=== PATIENT | female | born 1950 | race Caucasian/White ===

== ENCOUNTER 2019-09-11 21:06 | Emergency (ER) | payer MEDICARE, MEDICAID ==
[2019-09-11 21:46] VITALS: BP 177/88; PULSE 87
--- NOTE | 2019-09-11 21:54 | EDM.PDOC ---
ED HPI GENERAL MEDICAL PROBLEM - General Chief Complaint: General Stated Complaint: CHOKING Time Seen by Provider: 09/11/19 21:46 Source of Information: Reports: Patient, EMS, Family, RN Notes Reviewed History Limitations: Reports: No Limitations - History of Present Illness INITIAL COMMENTS - FREE TEXT/NARRATIVE: 68-year-old female presents emergency department today with complaint of choking sensation, she is a resident of assisted living facility was eating carrots had difficulty choking staff did assist she then vomited the carrot up but however still had the sensation that something was caught in her throat. However by the time she arrived to the emergency department she states she feels back to normal she is given a glass of ice water and has no difficulty swallowing Throat Pain Score (Numeric/FACES): 2 - Related Data Allergies Allergy/AdvReac Type Severity Reaction Status Date / Time No Known Allergies Allergy Verified 09/11/19 21:13 Home Meds: Home Meds Ezetimibe [Zetia] 10 mg PO BEDTIME 05/16/13 [History] Insulin Aspart [Novolog] 12 unit SQ TIDMEALS 05/16/13 [History] Levothyroxine 88 mcg PO DAILY 05/16/13 [History] atorvaSTATin [Lipitor] 10 mg PO BEDTIME 05/16/13 [History] metFORMIN [Glucophage] 850 mg PO BID 05/16/13 [History] Acetaminophen [Tylenol] 1 - 2 tab PO Q4H PRN 07/07/14 [History] Calcium Carb/Vitamin D3/Vit K1 [Calcium + D Soft Chewable Tab] 1 each PO DAILY 07/07/14 [History] Chlorhexidine Gluconate [Peridex] 15 ml PO BID 07/07/14 [History] Dextromethorphan/guaiFENesin [Robitussin DM] 1 - 2 ml PO Q4H PRN 07/07/14 [ History] Losartan [Cozaar] 25 mg PO DAILY 07/07/14 [History] Clotrimazole [Clotrimazole 1%] 1 applic TOP ASDIRECTED 02/05/16 [History] Triamcinolone Acetonide [Kenalog 0.1% Crm] 1 applic TOP ASDIRECTED 02/05/16 [ History] Alendronate [Fosamax] 70 mg PO SUMOTUWETHFR 02/06/16 [History] Canagliflozin [Invokana] 300 mg PO DAILY 02/06/16 [History] Insulin Glargine,Hum.Rec.Anlog [[place]] 75 units SQ DAILY 02/06/16 [ History] Past Medical History HEENT History: Reports: Impaired Vision Cardiovascular History: Reports: High Cholesterol, Hypertension Gastrointestinal History: Reports: Cholelithiasis Genitourinary History: Reports: UTI, 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: Dysfunctional 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 Bleeding Psychiatric History: Reports: Developmental Delay Endocrine/Metabolic History: Reports: Diabetes, Type II, Hypothyroidism, IDDM, Obesity/BMI 30+, Osteoporosis - Past Surgical History GI Surgical History: Reports: Colonoscopy Dermatological Surgical History: Reports: None Social & Family History - Tobacco Use Smoking Status *Q: Never Smoker Second Hand Smoke Exposure: No - Caffeine Use Caffeine Use: Reports: None - Recreational Drug Use Recreational Drug Use: No ED ROS GENERAL - Review of Systems Review Of Systems: See Below HEENT: Reports: Throat Pain, Throat Swelling ED EXAM, GENERAL - Physical Exam Exam: See Below Exam Limited By: No Limitations General Appearance: Alert, WD/WN, No Apparent Distress Throat/Mouth: Normal Inspection, Normal Lips, Normal Teeth, Normal Gums, Normal Oropharynx, Normal Voice, No Airway Compromise Neck: Normal Inspection, Supple, Non-Tender, Full Range of Motion Respiratory/Chest: No Respiratory Distress, Lungs Clear, Normal Breath Sounds, No Accessory Muscle Use, Chest Non-Tender Cardiovascular: Regular Rate, Rhythm, No Murmur Course - Vital Signs Last Recorded V/S: Last Vital Signs Temp 98.4 F 09/11/19 21:17 Pulse 87 09/11/19 21:45 Resp 16 09/11/19 21:45 BP 177/88 H 09/11/19 21:45 Pulse Ox 97 09/11/19 21:45 Departure - Departure Time of Disposition: 21:53 Disposition: Home, Self-Care 01 Condition: Fair Clinical Impression: Choking episode - Discharge Information Referrals: PCP,None [Primary Care Provider] - Additional Instructions: Follow-up with primary care as needed, call or return to the emergency department as needed Sepsis Event Note - Evaluation Sepsis Screening Result: No Definite Risk - Focused Exam Vital Signs: Vital Signs Temp Pulse Resp BP Pulse Ox 09/11/19 21:45 87 16 177/88 H 97 09/11/19 21:30 113 H 16 208/98 H 99 09/11/19 21:17 98.4 F 107 H 16 199/97 H 99 09/11/19 21:14 98.4 F 107 H 16 19997 H 99 Date Exam was Performed: 09/11/19 Time Exam was Performed: 21:51 - Assessment/Plan Plan: Assessment Acuity = acute Site and laterality = choking sensation now resolved Etiology = secondary to food bolus Manifestations = none Location of injury = Home Lab values = none Plan She tolerated small sips of water without difficulty, states she feels back to her normal self plan is discharged back to assisted living center follow-up primary care as needed This note was dictated using [employer] voice recognition software please call with any questions on syntax or grammar.
== END 2019-09-11 22:07 | disposition home or self-care (01) ==
LOC: JP.ED 21:06
DX: R09.89 Other specified symptoms and signs involving the circulatory and respiratory systems (principal); I10 Essential (primary) hypertension; E11.9 Type 2 diabetes mellitus without complications; E78.00 Pure hypercholesterolemia, unspecified; E03.9 Hypothyroidism, unspecified; E66.9 Obesity, unspecified; Z68.27 Body mass index [BMI] 27.0-27.9, adult; Z79.899 Other long term (current) drug therapy; Z79.4 Long term (current) use of insulin
CPT/HCPCS: 99282; 99283

== ENCOUNTER 2021-03-23 12:43 | Emergency (ER) | payer MEDICARE, MEDICAID ==
[2021-03-23] MEDS ORDERED: 50% Dextrose in Water 50 ML Syringe IVPUSH ONE ×2 (12:46→12:53)
[2021-03-23] MEDS ORDERED: Sodium Chloride 0.9% 10 ML Syringe FLUSH PRN (12:46)
--- NOTE | 2021-03-23 13:01 | EDM.PDOC ---
ED HPI GENERAL MEDICAL PROBLEM - General Chief Complaint: Gastrointestinal Problem Stated Complaint: MED[facility] Time Seen by Provider: 03/23/21 12:50 Source of Information: Reports: EMS, Old Records History Limitations: Reports: Other (patient with mental retardation) - History of Present Illness INITIAL COMMENTS - FREE TEXT/NARRATIVE: 70 yo female from a local [facility] was sent via EMS for presumed choking. Had received her insulin about 40 min before eating and when she tried to swalllow her lunch began choking and was not able to keep anything down. EMS upon arrival checked a blood sugar twice and got 38 and 39 on these checks. They then gave oral Glutose and transported. There was no diaphoresis. Onset: Today, Sudden Onset Date: 03/23/21 Duration: Minutes:, Improving Location: Reports: Other (unsure) Quality: Reports: Other (pain not reported) Severity: Moderate Improves with: Reports: Other (? oral glucose) Worsens with: Reports: Eating (? attempting to swallow) Context: Reports: Other (See HPI) Associated Symptoms: Reports: No Other Symptoms Treatments FLEECER: Reports: Other (see below) (oral "Glu-tose") - Related Data Allergies Allergy/AdvReac Type Severity Reaction Status Date / Time No Known Allergies Allergy Verified 03/23/21 13:24 Home Meds: Home Meds Ezetimibe [Zetia] 10 mg PO BEDTIME 05/16/13 [History] Insulin Aspart [Novolog] 12 unit SQ TIDMEALS 05/16/13 [History] Levothyroxine 88 mcg PO DAILY 05/16/13 [History] atorvaSTATin [Lipitor] 10 mg PO BEDTIME 05/16/13 [History] metFORMIN [Glucophage] 850 mg PO BID 05/16/13 [History] Acetaminophen [Tylenol] 1 - 2 tab PO Q4H PRN 07/07/14 [History] Calcium Carb/Vitamin D3/Vit K1 [Calcium + D Soft Chewable Tab] 1 each PO DAILY 07/07/14 [History] Chlorhexidine Gluconate [Peridex] 15 ml PO BID 07/07/14 [History] Dextromethorphan/guaiFENesin [Robitussin DM] 1 - 2 ml PO Q4H PRN 07/07/14 [History] Losartan [Cozaar] 25 mg PO DAILY 07/07/14 [History] Clotrimazole [Clotrimazole 1%] 1 applic TOP ASDIRECTED 02/05/16 [History] Triamcinolone Acetonide [Kenalog 0.1% Crm] 1 applic TOP ASDIRECTED 02/05/16 [History] Alendronate [Fosamax] 70 mg PO SUMOTUWETHFR 02/06/16 [History] Canagliflozin [Invokana] 300 mg PO DAILY 02/06/16 [History] Insulin Glargine,Hum.Rec.Anlog [Toujeo Solostar] 75 units SQ DAILY 02/06/16 [History] Past Medical History HEENT History: Reports: Impaired Vision Cardiovascular History: Reports: High Cholesterol, Hypertension Gastrointestinal History: Reports: Cholelithiasis Genitourinary History: Reports: UTI, 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: Dysfunctional 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 Bleeding Psychiatric History: Reports: Developmental Delay Endocrine/Metabolic History: Reports: Diabetes, Type II, Hypothyroidism, IDDM, Obesity/BMI 30+, Osteoporosis - Past Surgical History GI Surgical History: Reports: Colonoscopy Dermatological Surgical History: Reports: None Social & Family History - Caffeine Use Caffeine Use: Reports: None ED ROS GENERAL - Review of Systems Review Of Systems: Unable To Obtain Reason Not Obtained: mental retardation Constitutional: Reports: No Symptoms GI/Abdominal: Reports: Other (choking) ED EXAM, GI/ABD - Physical Exam Exam: See Below Exam Limited By: No Limitations General Appearance: Alert, WD/WN, No Apparent Distress Eyes: Bilateral: Normal Appearance Ears: Normal External Exam, Normal Canal, Hearing Grossly Normal Nose: Normal Inspection, No Blood Throat/Mouth: Normal Inspection, Normal Lips, Normal Oropharynx, Normal Voice, No Airway Compromise Head: Atraumatic, Normocephalic Neck: Normal Inspection Respiratory/Chest: No Respiratory Distress, Lungs Clear, Normal Breath Sounds, No Accessory Muscle Use Cardiovascular: Regular Rate, Rhythm, No Edema GI/Abdominal Exam: Soft, Non-Tender Extremities: Normal Inspection Neurological: Alert, Oriented, CN II-XII Intact, Normal Cognition, No Motor/Sensory Deficits Psychiatric: Normal Affect, Normal Mood Skin Exam: Warm, Dry, Intact, Normal Color, No Rash Course - Vital Signs Last Recorded V/S: Last Vital Signs Temp 36.0 C L 03/23/21 13:23 Pulse 112 H 03/23/21 13:23 Resp 18 03/23/21 13:23 BP 179/104 H 03/23/21 13:23 Pulse Ox 100 03/23/21 13:23 - Orders/Labs/Meds Orders: Active Orders 24 hr Category Date Time Status Sodium Chloride 0.9% [Saline Flush] Med 03/23/21 12:46 Active 10 ml FLUSH ASDIRECTED PRN Saline Lock Insert [OM.PC] Routine Oth 03/23/21 12:46 Ordered Medication Orders Sodium Chloride (Sodium Chloride 0.9% 10 Ml Syringe) 10 ml FLUSH ASDIRECTED PRN PRN Reason: Keep Vein Open Last Admin: 03/23/21 13:02 Dose: 10 ml Documented by: LOULOU Labs: Laboratory Tests 03/23/21 Range/Units 12:52 POC Glucose 49 L* (74-106) mg/dL Meds: Medications Generic Name Dose Route Start Last Admin Trade Name Freq PRN Reason Stop Dose Admin Sodium Chloride 10 ml 03/23/21 12:46 03/23/21 13:02 Sodium Chloride 0.9% 10 Ml Syringe FLUSH 10 ml ASDIRECTED PRN Administration Keep Vein Open Discontinued Medications Generic Name Dose Route Start Last Admin Trade Name Freq PRN Reason Stop Dose Admin Dextrose/Water 50 ml 03/23/21 12:46 50% Dextrose In Water 50 Ml Syringe IVPUSH 03/23/21 12:47 ONETIME ONE Dextrose/Water 25 ml 03/23/21 12:53 03/23/21 13:00 50% Dextrose In Water 50 Ml Syringe IVPUSH 03/23/21 12:54 25 ml ONETIME ONE Administration - Re-Assessments/Exams Free Text/Narrative Re-Assessment/Exam: 03/23/21 13:04 Fingerstick glucose in the 40's. Gave 1/2 amp of D50W IV and fed her lunch. Free Text/Narrative Re-Assessment/Exam: 03/23/21 13:47 once her blood sugar was corrected she ate fine lunch just fine. Departure - Departure Time of Disposition: 13:47 Disposition: Home, Self-Care 01 Condition: Good Clinical Impression: Hypoglycemia - Discharge Information *PRESCRIPTION DRUG MONITORING PROGRAM REVIEWED*: Not Applicable *COPY OF PRESCRIPTION DRUG MONITORING REPORT IN PATIENT EAN: Not Applicable Instructions: Hypoglycemia, [id number] Referrals: PCP,None [Primary Care Provider] - Forms: ED Department Discharge Additional Instructions: Have staff shorten the time before eating that her insulin is given by about 15- 20 minutes. Recheck as needed. Sepsis Event Note (ED) - Focused Exam Vital Signs: Vital Signs Temp Pulse Resp BP Pulse Ox 03/23/21 13:23 36.0 C L 112 H 18 179/104 H 100 03/23/21 13:04 112 H 179/104 H 100 03/23/21 12:57 36.0 C L 106 H 18 208/91 H 97 - My Orders Last 24 Hours: My Active Orders 03/23/21 12:46 Sodium Chloride 0.9% [Saline Flush] 10 ml FLUSH ASDIRECTED PRN Saline Lock Insert [OM.PC] Routine - Assessment/Plan Last 24 Hours: My Active Orders 03/23/21 12:46 Sodium Chloride 0.9% [Saline Flush] 10 ml FLUSH ASDIRECTED PRN Saline Lock Insert [OM.PC] Routine
[2021-03-23 13:09] VITALS: BP 179/104; PULSE 112
== END 2021-03-23 14:18 | disposition home or self-care (01) ==
LOC: JP.ED 12:43
DX: E11.649 Type 2 diabetes mellitus with hypoglycemia without coma (principal); E78.00 Pure hypercholesterolemia, unspecified; I10 Essential (primary) hypertension; E66.9 Obesity, unspecified; E03.9 Hypothyroidism, unspecified; Z68.23 Body mass index [BMI] 23.0-23.9, adult; Z79.4 Long term (current) use of insulin; Z79.899 Other long term (current) drug therapy
CPT/HCPCS: 82947; 96374; 99284-25

== ENCOUNTER 2023-04-13 11:08 | Emergency (ER) | payer MEDICARE, MEDICAID ==
[2023-04-13] MEDS ORDERED: Diltiazem 25 MG/5 ML SDV IVPUSH ONE (11:36)
[2023-04-13] MEDS ORDERED: Aspirin 81 MG Tab.Chew PO ONE (11:39)
[2023-04-13] MEDS ORDERED: Metoprolol Tartrate 50 MG Tab PO ONE (11:57)
[2023-04-13] MEDS ORDERED: Heparin Sodium 5,000 Units/ML Vial IVPUSH ONE (11:57)
[2023-04-13] MEDS ORDERED: Diltiazem 100 MG in Sodium Chloride 0.9% 100 ML IV SCH (12:00)
[2023-04-13] MEDS ORDERED: Heparin Sodium/D5W 25,000 UNITS/500 ML BAG IV SCH (12:00)
[2023-04-13 12:15] LABS: BASOPHILS ABSOLUTE AUTO 0.03 K/uL (0.00-0.10); BASOPHILS PERCENT AUTO 0.3 % (0.1-1.3); EOSINOPHILS PERCENT AUTO 0.1 % (0.0-5.4); HEMATOCRIT 39.6 % (34.3-46.0); HEMOGLOBIN 12.9 g/dL (11.2-15.5); IMMATURE GRAN ABSOLUTE AUTO 0.04 K/uL (0.00-0.23); IMMATURE GRAN PERCENT AUTO 0.4 % (0.0-0.7); LYMPHOCYTES ABSOLUTE AUTO 1.22 K/uL (0.8-3.3); LYMPHOCYTES PERCENT AUTO 12.2 % (11.4-47.7); MEAN CORPUSCULAR HEMOGLOBIN 28.4 pg (31.6-35.5); MEAN CORPUSCULAR HGB CONC 32.6 g/dL (31.6-35.5); MEAN CORPUSCULAR VOLUME 87.2 fL (81.4-99.0); MONOCYTES ABSOLUTE AUTO 0.94 K/uL (0.20-0.90); MONOCYTES PERCENT AUTO 9.4 % (3.3-12.6); NEUTROPHILS ABSOLUTE AUTO 7.79 K/uL (1.0-7.6); NEUTROPHILS PERCENT AUTO 77.6 % (40.0-78.1); PLATELET COUNT,PLT 263 K/uL (130-375); RED BLOOD CELL COUNT 4.54 M/uL (3.77-5.24)
[2023-04-13 12:17] LABS: EOSINOPHILS ABSOLUTE AUTO 0.01 K/uL (0.00-0.40)
[2023-04-13 12:33] VITALS: BP 110/68; PULSE 145
[2023-04-13 12:39] LABS: CALCIUM 9.1 mg/dL (8.5-10.1); CREATININE 1.2 mg/dL (0.6-1.0); EST CRCL DRUG DOSING (CG) 35.52 mL/min
== END 2023-04-13 12:43 ==
LOC: JP.ED 11:08
DX: I21.3 ST elevation (STEMI) myocardial infarction of unspecified site (principal); I48.91 Unspecified atrial fibrillation; I10 Essential (primary) hypertension; E78.00 Pure hypercholesterolemia, unspecified; E11.9 Type 2 diabetes mellitus without complications; E03.9 Hypothyroidism, unspecified; E66.9 Obesity, unspecified; Z68.23 Body mass index [BMI] 23.0-23.9, adult; Z79.4 Long term (current) use of insulin; Z79.899 Other long term (current) drug therapy
CPT/HCPCS: 36415; 80048; 84484; 85025; 96365; 96368; 96376; 99285; A9270; J1644; J3490

== ENCOUNTER 2023-09-01 04:34 | Emergency (ER) | payer MEDICARE, MEDICAID ==
[2023-09-01 05:07] LABS: BASOPHILS ABSOLUTE AUTO 0.04 K/uL (0.00-0.10); BASOPHILS PERCENT AUTO 0.5 % (0.1-1.3); EOSINOPHILS ABSOLUTE AUTO 0.09 K/uL (0.00-0.40); EOSINOPHILS PERCENT AUTO 1.1 % (0.0-5.4); HEMATOCRIT 40.3 % (34.3-46.0); IMMATURE GRAN ABSOLUTE AUTO 0.04 K/uL (0.00-0.23); IMMATURE GRAN PERCENT AUTO 0.5 % (0.0-0.7); LYMPHOCYTES ABSOLUTE AUTO 1.53 K/uL (0.8-3.3); LYMPHOCYTES PERCENT AUTO 19.3 % (11.4-47.7); MEAN CORPUSCULAR HEMOGLOBIN 28.6 pg (31.6-35.5); MEAN CORPUSCULAR HGB CONC 32.3 g/dL (31.6-35.5); MEAN CORPUSCULAR VOLUME 88.6 fL (81.4-99.0); MONOCYTES ABSOLUTE AUTO 0.55 K/uL (0.20-0.90); MONOCYTES PERCENT AUTO 6.9 % (3.3-12.6); NEUTROPHILS ABSOLUTE AUTO 5.69 K/uL (1.0-7.6); NEUTROPHILS PERCENT AUTO 71.7 % (40.0-78.1); PLATELET COUNT,PLT 222 K/uL (130-375); RED BLOOD CELL COUNT 4.55 M/uL (3.77-5.24); WHITE BLOOD CELL COUNT,WBC 7.9 K/uL (3.2-11.0)
[2023-09-01 05:32] LABS: ANION GAP 11.1 mmol/L (5.0-14.0); BLOOD UREA NITROGEN,BUN 22 mg/dL (7-18); CALCIUM 9.2 mg/dL (8.5-10.1); CARBON DIOXIDE,CO2 28 mmol/L (21-32); CHLORIDE,CL 104 mmol/L (100-108); CREATININE 1.1 mg/dL (0.6-1.0); ESTIMATED GFR 53 mL/min (>60); GLUCOSE RANDOM 105 mg/dL (74-106); SODIUM,NA 143 mmol/L (140-148)
[2023-09-01] MEDS: Sodium Chloride 0.9% 250 ML IV SCH (06:18)
[2023-09-01 06:31] VITALS: BP 192/81; PULSE 75
== END 2023-09-01 09:35 | disposition home or self-care (01) ==
LOC: JP.ED 04:34
DX: E16.2 Hypoglycemia, unspecified (principal); E78.00 Pure hypercholesterolemia, unspecified; I10 Essential (primary) hypertension; E11.9 Type 2 diabetes mellitus without complications; E66.9 Obesity, unspecified; Z79.4 Long term (current) use of insulin
CPT/HCPCS: 36415; 80048; 85025; 99285; J7050

== ENCOUNTER 2024-10-22 23:54 | Emergency (ER) | payer MEDICARE, MEDICAID ==
[2024-10-23 00:40] LABS: APPEARANCE,URINE CLEAR (CLEAR); BILIRUBIN,URINE NEGATIVE (NEGATIVE); GLUCOSE,URINE 500 mg/dL (NEGATIVE); KETONES,URINE NEGATIVE (NEGATIVE); LEUKOCYTE ESTERASE,URINE NEGATIVE (NEGATIVE); NITRITE,URINE NEGATIVE (NEGATIVE); OCCULT BLOOD,URINE NEGATIVE (NEGATIVE); PROTEIN,URINE NEGATIVE (NEGATIVE); UROBILINOGEN,URINE 0.2 EU/dL (0.2-1.0)
[2024-10-23 00:48] LABS: BASOPHILS ABSOLUTE AUTO 0.03 K/uL (0.00-0.10); BASOPHILS PERCENT AUTO 0.5 % (0.1-1.3); EOSINOPHILS ABSOLUTE AUTO 0.19 K/uL (0.00-0.40); EOSINOPHILS PERCENT AUTO 3.1 % (0.0-5.4); HEMATOCRIT 37.4 % (34.3-46.0); HEMOGLOBIN 12.5 g/dL (11.2-15.5); IMMATURE GRAN ABSOLUTE AUTO 0.03 K/uL (0.00-0.23); IMMATURE GRAN PERCENT AUTO 0.5 % (0.0-0.7); LYMPHOCYTES ABSOLUTE AUTO 1.62 K/uL (0.8-3.3); LYMPHOCYTES PERCENT AUTO 26.7 % (11.4-47.7); MEAN CORPUSCULAR HEMOGLOBIN 29.6 pg (31.6-35.5); MEAN CORPUSCULAR HGB CONC 33.4 g/dL (31.6-35.5); MEAN CORPUSCULAR VOLUME 88.6 fL (81.4-99.0); MONOCYTES ABSOLUTE AUTO 0.54 K/uL (0.20-0.90); MONOCYTES PERCENT AUTO 8.9 % (3.3-12.6); NEUTROPHILS ABSOLUTE AUTO 3.65 K/uL (1.0-7.6); NEUTROPHILS PERCENT AUTO 60.3 % (40.0-78.1); PLATELET COUNT,PLT 187 K/uL (130-375); RED BLOOD CELL COUNT 4.22 M/uL (3.77-5.24); WHITE BLOOD CELL COUNT,WBC 6.1 K/uL (3.2-11.0)
[2024-10-23 00:54] LABS: AMORPHOUS SEDIMENT,URINE NOT SEEN; BACTERIA,URINE FEW; COLOR,URINE OTHER (YELLOW); EPITHELIAL CELLS,URINE FEW; MUCUS,URINE RARE; RBC,URINE NOT SEEN (0-5); WBC,URINE 0-5 (0-5)
[2024-10-23 01:12] LABS: A/G RATIO 0.8 (1.2-2.2); ALANINE AMINOTRANSFERASE,ALT 30 U/L (12-78); ALBUMIN 3.3 g/dL (3.4-5.0); ALKALINE PHOSPHATASE 65 U/L (46-116); ASPARTATE AMNIOTRANSFERASE,AST 23 U/L (15-37); BILIRUBIN TOTAL 0.4 mg/dL (0.2-1.0); BLOOD UREA NITROGEN,BUN 38 mg/dL (7-18); CARBON DIOXIDE,CO2 25 mmol/L (21-32); CHLORIDE,CL 99 mmol/L (100-108); CREATININE 1.4 mg/dL (0.6-1.0); ESTIMATED GFR 39 mL/min (>60); POTASSIUM,K 4.7 mmol/L (3.6-5.2); PROTEIN TOTAL,TP 7.5 g/dL (6.4-8.2); SODIUM,NA 132 mmol/L (140-148)
[2024-10-23 01:15] LABS: ANION GAP 12.7 mmol/L (5.0-14.0); GLUCOSE RANDOM 488 mg/dL (74-106)
[2024-10-23] MEDS ORDERED: Glucagon,Human Recombinant 1 MG Vial IM PRN (01:16)
[2024-10-23] MEDS ORDERED: 50% Dextrose in Water 50 ML Syringe IVPUSH PRN (01:16)
[2024-10-23] MEDS: Insulin Regular, Human 100 Units/ML 3 ML Vial IVPUSH ONE (01:38)
[2024-10-23 02:05] VITALS: BP 185/83; PULSE 73
== END 2024-10-23 01:50 ==
LOC: JP.ED 23:54
DX: E11.65 Type 2 diabetes mellitus with hyperglycemia (principal); I10 Essential (primary) hypertension; E78.00 Pure hypercholesterolemia, unspecified; E03.9 Hypothyroidism, unspecified; Z90.710 Acquired absence of both cervix and uterus; Z79.890 Hormone replacement therapy
CPT/HCPCS: 36415; 71046; 80053; 81001; 85025; 87428; 99285; J1815; 99284

== ENCOUNTER 2025-02-02 21:17 | Emergency (ER) | payer MEDICARE, MEDICAID ==
[2025-02-02 21:32] VITALS: BP 172/82; PULSE 76
[2025-02-02 21:51] LABS: BASOPHILS ABSOLUTE AUTO 0.03 K/uL (0.00-0.10); BASOPHILS PERCENT AUTO 0.5 % (0.1-1.3); EOSINOPHILS ABSOLUTE AUTO 0.28 K/uL (0.00-0.40); EOSINOPHILS PERCENT AUTO 4.8 % (0.0-5.4); HEMATOCRIT 39.6 % (34.3-46.0); HEMOGLOBIN 12.9 g/dL (11.2-15.5); IMMATURE GRAN ABSOLUTE AUTO 0.03 K/uL (0.00-0.23); IMMATURE GRAN PERCENT AUTO 0.5 % (0.0-0.7); LYMPHOCYTES ABSOLUTE AUTO 1.46 K/uL (0.8-3.3); LYMPHOCYTES PERCENT AUTO 24.8 % (11.4-47.7); MEAN CORPUSCULAR HEMOGLOBIN 30.2 pg (31.6-35.5); MEAN CORPUSCULAR HGB CONC 32.6 g/dL (31.6-35.5); MEAN CORPUSCULAR VOLUME 92.7 fL (81.4-99.0); MONOCYTES ABSOLUTE AUTO 0.69 K/uL (0.20-0.90); MONOCYTES PERCENT AUTO 11.7 % (3.3-12.6); NEUTROPHILS ABSOLUTE AUTO 3.39 K/uL (1.0-7.6); NEUTROPHILS PERCENT AUTO 57.7 % (40.0-78.1); PLATELET COUNT,PLT 217 K/uL (130-375); RED BLOOD CELL COUNT 4.27 M/uL (3.77-5.24); WHITE BLOOD CELL COUNT,WBC 5.9 K/uL (3.2-11.0)
[2025-02-02 22:25] LABS: A/G RATIO 0.7 (1.2-2.2); ALANINE AMINOTRANSFERASE,ALT 22 U/L (12-78); ALKALINE PHOSPHATASE 76 U/L (46-116); ASPARTATE AMNIOTRANSFERASE,AST 15 U/L (15-37); BILIRUBIN TOTAL 0.3 mg/dL (0.2-1.0); BLOOD UREA NITROGEN,BUN 35 mg/dL (7-18); CALCIUM 9.5 mg/dL (8.5-10.1); CARBON DIOXIDE,CO2 29 mmol/L (21-32); CHLORIDE,CL 100 mmol/L (100-108); CREATININE 1.7 mg/dL (0.6-1.0); ESTIMATED GFR 31 mL/min (>60); POTASSIUM,K 5.4 mmol/L (3.6-5.2); PROTEIN TOTAL,TP 7.5 g/dL (6.4-8.2); SODIUM,NA 133 mmol/L (140-148)
[2025-02-02 22:26] LABS: ANION GAP 9.4 mmol/L (5.0-14.0); GLUCOSE RANDOM 618 mg/dL (74-106)
[2025-02-02] MEDS ORDERED: Glucagon,Human Recombinant 1 MG Vial IM PRN (22:34)
[2025-02-02] MEDS ORDERED: 50% Dextrose in Water 50 ML Syringe IVPUSH PRN (22:34)
[2025-02-02] MEDS: Insulin Regular, Human 100 Units/ML 10 ML Vial IVPUSH ONE (22:41)
== END 2025-02-02 23:44 ==
LOC: JP.ED 21:17
DX: E11.65 Type 2 diabetes mellitus with hyperglycemia (principal); I10 Essential (primary) hypertension; E66.9 Obesity, unspecified; E78.00 Pure hypercholesterolemia, unspecified; Z79.890 Hormone replacement therapy; Z79.899 Other long term (current) drug therapy; Z79.4 Long term (current) use of insulin; Z79.02 Long term (current) use of antithrombotics/antiplatelets; Z90.710 Acquired absence of both cervix and uterus
CPT/HCPCS: 36415; 80053; 82009; 82947; 83605; 85025; 99284; 99285; A9270-GY